=== PATIENT | male | born 1960 | race Caucasian/White ===

== ENCOUNTER → 2017-03-16 | Outpatient (CLI) | payer MEDICAID ==
[2016-04-21 16:02] VITALS: BP 169/87
[~2017-03-16] MED LIST: AMBIEN10 MG PO; BACTRIM DS 8001 TA1 PO; BENADRYL50 MG PO; CARDURA XL8 MG PO; CEPHALEXIN500 M1 PO; CIPRO500 M1 PO; CORTISPORIN EAR10 M1 OT; ENALAPRIL10 MG PO; HCTZ 25MG25 MG PO; LAMICTAL200 MG PO; LASIX20 MG PO; METFORMIN500 MG PO; NAPROXEN500 M1 PO; NORCO 325 MG-51 TA1 PO; OXYCODONE5 MG PO; TESTOSTERONE1 POW; VALSARTAN320 MG PO; VITAMIN B122500 MCG SL; VITAMIN D5000 I1 PO
== END ==
LOC: RAD 11:00
DX: M25.561 Pain in right knee (principal); M17.0 Bilateral primary osteoarthritis of knee; Z96.652 Presence of left artificial knee joint

== ENCOUNTER 2017-03-28 11:00 | Outpatient (RCR) | payer MEDICAID ==
[2016-04-21 16:02] VITALS: BP 169/87
== END 2017-04-19 13:08 | disposition home or self-care (01) ==
LOC: PT 11:00
DX: M25.562 Pain in left knee (principal); M25.561 Pain in right knee

== ENCOUNTER → 2017-05-10 | Outpatient (CLI) | payer MEDICAID ==
[2016-04-21 16:02] VITALS: BP 169/87
== END ==
LOC: LAB 11:51
DX: E11.8 Type 2 diabetes mellitus with unspecified complications (principal)

== ENCOUNTER → 2017-05-17 | Outpatient (CLI) | payer MEDICAID ==
[2016-04-21 16:02] VITALS: BP 169/87
== END ==
LOC: LAB 10:11
DX: I10 Essential (primary) hypertension (principal); Z12.5 Encounter for screening for malignant neoplasm of prostate; Z12.11 Encounter for screening for malignant neoplasm of colon; R73.02 Impaired glucose tolerance (oral); E78.2 Mixed hyperlipidemia; N52.9 Male erectile dysfunction, unspecified; R20.2 Paresthesia of skin

== ENCOUNTER → 2017-06-07 | Outpatient (CLI) | payer MEDICAID ==
[2016-04-21 16:02] VITALS: BP 169/87
== END ==
LOC: CARDREHAB 12:20
DX: E29.1 Testicular hypofunction (principal)

== ENCOUNTER → 2018-01-20 | Outpatient (CLI) | payer MEDICAID ==
[2016-04-21 16:02] VITALS: BP 169/87
[2018-01-20 10:59] LABS: EOS # 0.1 (0.04-0.40); EOS % 1.5 % (0.0-4.0); HEMATOCRIT 45.1 % (42.0-52.0); HEMOGLOBIN 14.8 g/dL (13.5-18.0); LYMPH# 1.2 (1.50-4.00); MEAN CELL VOLUME 92 fl (78-100); MEAN CORPUSCULAR HEMOGLOBIN 30 pg (27-31); MEAN CORPUSCULAR HGB CONC 33 g/dL (33-37); MEAN PLATELET VOLUME 9.8 fl (7.4-10.4); MONO # 0.5 (0.20-0.80); NEU # 4.2 (1.40-6.50); PLATELET COUNT 153 K/mm3 (130-400); RED BLOOD COUNT 4.93 M/mm3 (4.20-5.60); RED CELL DISTRIBUTION WIDTH 14.3 % (11.5-14.5)
[2018-01-20 11:12] LABS: ALBUMIN 3.9 g/dL (3.5-5.0); BUN/CREATININE RATIO 13.4 (6.0-26.0); CALCIUM 9.5 mg/dL (8.4-10.2); POTASSIUM 4.3 mmol/L (3.6-5.0); TOTAL BILIRUBIN 1.5 mg/dL (0.2-1.3); TOTAL PROTEIN 8.1 g/dL (6.3-8.2)
[2018-01-20 23:03] LABS: TESTOSTERONE 271 ng/dL (221-716)
== END ==
LOC: LAB 10:09
PROVIDERS: Internal Medicine
DX: R73.02 Impaired glucose tolerance (oral) (principal); R97.20 Elevated prostate specific antigen [PSA]; E78.2 Mixed hyperlipidemia; E29.1 Testicular hypofunction; I10 Essential (primary) hypertension

== ENCOUNTER → 2018-03-17 | Outpatient (CLI) | payer MEDICAID ==
[2016-04-21 16:02] VITALS: BP 169/87
[2018-03-17 11:47] LABS: ALBUMIN 3.7 g/dL (3.5-5.0); DIRECT BILIRUBIN 0.3 mg/dL (0.0-0.4); TOTAL PROTEIN 7.4 g/dL (6.3-8.2)
== END ==
LOC: LAB 11:14
PROVIDERS: Internal Medicine
DX: E80.6 Other disorders of bilirubin metabolism (principal)

== ENCOUNTER → 2018-04-20 | Outpatient (CLI) | payer MEDICAID ==
[2016-04-21 16:02] VITALS: BP 169/87
== END ==
LOC: RAD 10:59
DX: N20.0 Calculus of kidney (principal)

== ENCOUNTER → 2018-10-03 | Outpatient (CLI) | payer MEDICAID ==
[2016-04-21 16:02] VITALS: BP 169/87
[2018-10-03 11:31] LABS: ALBUMIN 4.1 g/dL (3.5-5.0); CALCIUM 9.9 mg/dL (8.4-10.2); EOS # 0.1 (0.04-0.40); EOS % 1.4 % (0.0-4.0); HEMATOCRIT 50.8 % (42.0-52.0); HEMOGLOBIN 17.3 g/dL (13.5-18.0); LYMPH# 1.9 (1.50-4.00); MEAN CELL VOLUME 88 fl (78-100); MEAN CORPUSCULAR HEMOGLOBIN 30 pg (27-31); MEAN CORPUSCULAR HGB CONC 34 g/dL (33-37); MEAN PLATELET VOLUME 9.9 fl (7.4-10.4); MONO # 0.7 (0.20-0.80); PLATELET COUNT 203 K/mm3 (130-400); POTASSIUM 4.1 mmol/L (3.6-5.0); RED CELL DISTRIBUTION WIDTH 14.3 % (11.5-14.5); TOTAL BILIRUBIN 1.8 mg/dL (0.2-1.3); TOTAL PROTEIN 7.7 g/dL (6.3-8.2); WHITE BLOOD COUNT 7.7 K/mm3 (4.8-10.8)
[2018-10-04 00:32] LABS: FOLLICLE STIMULATING HORMONE 14.1 mIU/mL (1.0-12.0); PROLACTIN 5.9 ng/mL (3.5-19.4); TESTOSTERONE 311 ng/dL (221-716)
== END ==
LOC: LAB 11:05
PROVIDERS: Internal Medicine
DX: R73.02 Impaired glucose tolerance (oral) (principal); E29.1 Testicular hypofunction

== ENCOUNTER → 2018-11-29 | Outpatient (CLI) | payer MEDICAID ==
[2016-04-21 16:02] VITALS: BP 169/87
== END ==
LOC: RAD 08:10
DX: M25.761 Osteophyte, right knee (principal); M23.41 Loose body in knee, right knee; M25.561 Pain in right knee; D48.0 Neoplasm of uncertain behavior of bone and articular cartilage

== ENCOUNTER → 2019-03-27 | Outpatient (CLI) | payer MEDICAID ==
[2016-04-21 16:02] VITALS: BP 169/87
[2019-03-27 11:04] LABS: POTASSIUM 4.7 mmol/L (3.5-5.1)
[2019-03-27 11:05] LABS: ALBUMIN 3.7 g/dL (3.5-5.0)
[2019-03-27 11:08] LABS: CALCIUM 9.7 mg/dL (8.3-10.5)
[2019-03-27 11:10] LABS: TOTAL PROTEIN 7.2 g/dL (6.4-8.3)
[2019-03-27 11:40] LABS: EOS # 0.2 (0.04-0.40); EOS % 2.1 % (0.0-4.0); HEMATOCRIT 50.2 % (42.0-52.0); HEMOGLOBIN 16.7 g/dL (13.5-18.0); LYMPH# 2.2 (1.50-4.00); MEAN CELL VOLUME 90 fl (78-100); MEAN CORPUSCULAR HEMOGLOBIN 30 pg (27-31); MEAN CORPUSCULAR HGB CONC 33 g/dL (33-37); MEAN PLATELET VOLUME 10.5 fl (7.4-10.4); MONO # 0.7 (0.20-0.80); NEU # 5.4 (1.40-6.50); PLATELET COUNT 201 K/mm3 (130-400); RED BLOOD COUNT 5.61 M/mm3 (4.20-5.60); RED CELL DISTRIBUTION WIDTH 14.2 % (11.5-14.5); WHITE BLOOD COUNT 8.5 K/mm3 (4.8-10.8)
== END ==
LOC: LAB 10:39
PROVIDERS: Internal Medicine
DX: I10 Essential (primary) hypertension (principal); E78.2 Mixed hyperlipidemia; E29.1 Testicular hypofunction; R73.02 Impaired glucose tolerance (oral); R97.20 Elevated prostate specific antigen [PSA]

== ENCOUNTER → 2019-07-02 | Outpatient (CLI) | payer MEDICAID ==
[2016-04-21 16:02] VITALS: BP 169/87
== END ==
LOC: RAD 11:19
DX: M25.562 Pain in left knee (principal)

== ENCOUNTER → 2019-11-14 | Outpatient (CLI) | payer MEDICAID ==
[2016-04-21 16:02] VITALS: BP 169/87
== END ==
LOC: RAD 08:39
DX: M17.11 Unilateral primary osteoarthritis, right knee (principal)

== ENCOUNTER → 2020-02-05 | Outpatient (CLI) | payer MEDICAID ==
[2016-04-21 16:02] VITALS: BP 169/87
[2020-02-05 11:40] LABS: EOS # 0.1 (0.04-0.40); EOS % 1.4 % (0.0-4.0); HEMATOCRIT 50.2 % (42.0-52.0); HEMOGLOBIN 16.4 g/dL (13.5-18.0); LYMPH# 2.2 (1.50-4.00); MEAN CELL VOLUME 93 fl (78-100); MEAN CORPUSCULAR HEMOGLOBIN 30 pg (27-31); MEAN CORPUSCULAR HGB CONC 33 g/dL (33-37); MEAN PLATELET VOLUME 9.8 fl (7.4-10.4); MONO # 1.1 (0.20-0.80); NEU # 6.9 (1.40-6.50); PLATELET COUNT 186 K/mm3 (130-400); RED BLOOD COUNT 5.39 M/mm3 (4.20-5.60); RED CELL DISTRIBUTION WIDTH 13.9 % (11.5-14.5); WHITE BLOOD COUNT 10.3 K/mm3 (4.8-10.8)
[2020-02-05 11:44] LABS: ALBUMIN 3.7 g/dL (3.5-5.0); POTASSIUM 4.4 mmol/L (3.5-5.1)
[2020-02-05 11:45] LABS: CALCIUM 9.8 mg/dL (8.3-10.5)
[2020-02-05 11:46] LABS: TOTAL PROTEIN 7.1 g/dL (6.4-8.3)
[2020-02-05 11:48] LABS: TOTAL BILIRUBIN 0.9 mg/dL (0.2-1.2)
[2020-02-05 13:25] LABS: ERYTHROCYTE SEDIMENTATION RATE 20 mm/hr (0-20)
== END ==
LOC: LAB 11:14
PROVIDERS: Internal Medicine
DX: I10 Essential (primary) hypertension (principal); L03.115 Cellulitis of right lower limb; R73.02 Impaired glucose tolerance (oral)

== ENCOUNTER → 2020-02-14 | Outpatient (CLI) | payer MEDICAID ==
[2016-04-21 16:02] VITALS: BP 169/87
[2020-02-14 11:30] LABS: EOS # 0.2 (0.04-0.40); EOS % 2.1 % (0.0-4.0); HEMATOCRIT 49.9 % (42.0-52.0); HEMOGLOBIN 16.3 g/dL (13.5-18.0); LYMPH# 1.8 (1.50-4.00); MEAN CELL VOLUME 93 fl (78-100); MEAN CORPUSCULAR HEMOGLOBIN 30 pg (27-31); MEAN CORPUSCULAR HGB CONC 33 g/dL (33-37); MEAN PLATELET VOLUME 9.7 fl (7.4-10.4); MONO # 0.7 (0.20-0.80); NEU # 5.3 (1.40-6.50); PLATELET COUNT 175 K/mm3 (130-400); RED BLOOD COUNT 5.39 M/mm3 (4.20-5.60); RED CELL DISTRIBUTION WIDTH 13.9 % (11.5-14.5)
[2020-02-14 11:42] LABS: ALBUMIN 3.7 g/dL (3.5-5.0); POTASSIUM 4.9 mmol/L (3.5-5.1)
[2020-02-14 11:43] LABS: CALCIUM 9.9 mg/dL (8.3-10.5)
[2020-02-14 11:45] LABS: TOTAL PROTEIN 7.1 g/dL (6.4-8.3)
[2020-02-14 11:46] LABS: TOTAL BILIRUBIN 0.9 mg/dL (0.2-1.2)
[2020-02-15 04:34] LABS: LUTENIZING HORMONE 5.1 mIU/mL (()); PROLACTIN AMS 5.7 ng/mL (3.7-23.1)
== END ==
LOC: LAB 10:58
PROVIDERS: Internal Medicine
DX: E78.2 Mixed hyperlipidemia (principal); R73.02 Impaired glucose tolerance (oral)

== ENCOUNTER → 2020-03-10 | Outpatient (CLI) | payer MEDICAID ==
[2016-04-21 16:02] VITALS: BP 169/87
[~2020-03-10] MED LIST changes: +COUMADIN 5MG5 MG/TAB PO; +K-TAB20 MEQ; +RESTORIL15 MG PO; +TORSEMIDE10 M1 PO
[2020-03-10 10:11] LABS: POTASSIUM 4.4 mmol/L (3.5-5.1)
[2020-03-10 10:12] LABS: CALCIUM 9.5 mg/dL (8.3-10.5)
[2020-03-10 10:19] LABS: MAGNESIUM 1.79 mg/dL (1.60-2.60)
[2020-03-10 13:22] LABS: PROTHROMBIN TIME 76.6 SECONDS (9.0-12.0)
== END ==
LOC: LAB 09:35
PROVIDERS: Internal Medicine
DX: I82.411 Acute embolism and thrombosis of right femoral vein (principal); I10 Essential (primary) hypertension

== ENCOUNTER → 2020-03-11 | Outpatient (CLI) | payer MEDICAID ==
[~2020-03-11] VITALS: Ht 190.5 cm; Wt 211.4 kg
[2020-03-11 15:17] VITALS: BP 141/79
== END ==
LOC: AMSURD 14:15
DX: I82.411 Acute embolism and thrombosis of right femoral vein (principal)
CPT/HCPCS: J3430

== ENCOUNTER → 2020-03-11 | Outpatient (CLI) | payer MEDICAID ==
[2016-04-21 16:02] VITALS: BP 169/87
[2020-03-11 12:09] LABS: PROTHROMBIN TIME 94.9 SECONDS (9.0-12.0)
== END ==
LOC: LAB 09:39
PROVIDERS: Internal Medicine
DX: I82.411 Acute embolism and thrombosis of right femoral vein (principal); I10 Essential (primary) hypertension

== ENCOUNTER → 2020-03-12 | Outpatient (CLI) | payer MEDICAID ==
[2020-03-11 15:17] VITALS: BP 141/79
[2020-03-12 11:29] LABS: PROTHROMBIN TIME 70.6 SECONDS (9.0-12.0)
== END ==
LOC: LAB 09:37
PROVIDERS: Internal Medicine
DX: I82.411 Acute embolism and thrombosis of right femoral vein (principal); I10 Essential (primary) hypertension

== ENCOUNTER → 2020-03-13 | Outpatient (CLI) | payer MEDICAID ==
[2020-03-11 15:17] VITALS: BP 141/79
[2020-03-13 09:21] LABS: ALBUMIN 3.8 g/dL (3.5-5.0); POTASSIUM 4.9 mmol/L (3.5-5.1)
[2020-03-13 09:23] LABS: TOTAL PROTEIN 7.7 g/dL (6.4-8.3)
[2020-03-13 09:30] LABS: MAGNESIUM 1.96 mg/dL (1.60-2.60)
[2020-03-13 09:46] LABS: PROTHROMBIN TIME 38.8 SECONDS (9.0-12.0)
== END ==
LOC: LAB 08:58
PROVIDERS: Internal Medicine
DX: I82.411 Acute embolism and thrombosis of right femoral vein (principal); I10 Essential (primary) hypertension; R73.02 Impaired glucose tolerance (oral)

== ENCOUNTER → 2020-06-26 | Outpatient (CLI) | payer MEDICAID ==
[2020-03-11 15:17] VITALS: BP 141/79
[2020-06-26 11:24] LABS: EOS # 0.1 (0.04-0.40); EOS % 1.2 % (0.0-4.0); HEMATOCRIT 47.8 % (42.0-52.0); HEMOGLOBIN 15.6 g/dL (13.5-18.0); LYMPH# 1.5 (1.50-4.00); MEAN CELL VOLUME 93 fl (78-100); MEAN CORPUSCULAR HEMOGLOBIN 30 pg (27-31); MEAN CORPUSCULAR HGB CONC 33 g/dL (33-37); MEAN PLATELET VOLUME 9.6 fl (7.4-10.4); MONO # 0.7 (0.20-0.80); NEU # 5.8 (1.40-6.50); PLATELET COUNT 182 K/mm3 (130-400); RED BLOOD COUNT 5.16 M/mm3 (4.20-5.60); RED CELL DISTRIBUTION WIDTH 14.5 % (11.5-14.5); WHITE BLOOD COUNT 8.1 K/mm3 (4.8-10.8)
[2020-06-26 11:39] LABS: ALBUMIN 3.7 g/dL (3.4-4.8); POTASSIUM 4.5 mmol/L (3.5-5.1)
[2020-06-26 11:41] LABS: TOTAL PROTEIN 6.8 g/dL (6.2-8.1)
[2020-06-26 11:43] LABS: TOTAL BILIRUBIN 1.8 mg/dL (0.2-1.2)
== END ==
LOC: LAB 11:11
PROVIDERS: Internal Medicine
DX: K90.9 Intestinal malabsorption, unspecified (principal); R73.02 Impaired glucose tolerance (oral)

== ENCOUNTER → 2020-07-24 | Outpatient (CLI) | payer MEDICAID ==
[2020-03-11 15:17] VITALS: BP 141/79
== END ==
LOC: RAD 10:12
DX: M79.89 Other specified soft tissue disorders (principal)

== ENCOUNTER → 2020-08-19 | Outpatient (CLI) | payer MEDICAID ==
[2020-03-11 15:17] VITALS: BP 141/79
== END ==
LOC: LAB 09:20
DX: K90.9 Intestinal malabsorption, unspecified (principal)

== ENCOUNTER → 2020-10-16 | Outpatient (CLI) | payer MEDICAID ==
[2020-03-11 15:17] VITALS: BP 141/79
== END ==
LOC: RAD 09:52
DX: M79.604 Pain in right leg (principal); R60.0 Localized edema

== ENCOUNTER → 2020-11-20 | Outpatient (CLI) | payer MEDICAID ==
[2020-03-11 15:17] VITALS: BP 141/79
[2020-11-20 10:56] LABS: EOS # 0.1 (0.04-0.40); EOS % 0.7 % (0.0-4.0); HEMATOCRIT 41.6 % (42.0-52.0); HEMOGLOBIN 13.3 g/dL (13.5-18.0); LYMPH# 1.7 (1.50-4.00); MEAN CELL VOLUME 93 fl (78-100); MEAN CORPUSCULAR HEMOGLOBIN 30 pg (27-31); MEAN CORPUSCULAR HGB CONC 32 g/dL (33-37); MEAN PLATELET VOLUME 9.3 fl (7.4-10.4); PLATELET COUNT 299 K/mm3 (130-400); RED BLOOD COUNT 4.48 M/mm3 (4.20-5.60); RED CELL DISTRIBUTION WIDTH 14.4 % (11.5-14.5); WHITE BLOOD COUNT 13.6 K/mm3 (4.8-10.8)
[2020-11-20 11:31] LABS: ALBUMIN 3.1 g/dL (3.4-4.8); POTASSIUM 4.7 mmol/L (3.5-5.1)
[2020-11-20 11:32] LABS: CALCIUM 9.4 mg/dL (8.3-10.5)
[2020-11-20 11:34] LABS: TOTAL PROTEIN 7.5 g/dL (6.2-8.1)
[2020-11-20 11:35] LABS: TOTAL BILIRUBIN 0.8 mg/dL (0.2-1.2)
[2020-11-20 11:40] LABS: MAGNESIUM 1.88 mg/dL (1.60-2.60)
[2020-11-20 12:13] LABS: NEU # 10.7 (1.40-6.50)
== END ==
LOC: LAB 09:40
PROVIDERS: Internal Medicine
DX: I10 Essential (primary) hypertension (principal); K90.9 Intestinal malabsorption, unspecified

== ENCOUNTER → 2021-08-13 | Outpatient (CLI) | payer MEDICAID ==
[2021-08-13 10:38] LABS: BASO # 0.03 K/mm3 (0.02-0.10); EOS # 0.15 K/mm3 (0.04-0.40); EOS % 1.5 % (0.0-4.0); HEMATOCRIT 34.5 % (42.0-52.0); HEMOGLOBIN 11.1 g/dL (13.5-18.0); LYMPH# 1.93 K/mm3 (1.50-4.00); MEAN CELL VOLUME 94 fl (78-100); MEAN CORPUSCULAR HEMOGLOBIN 30 pg (27-31); MEAN CORPUSCULAR HGB CONC 32 g/dL (33-37); MEAN PLATELET VOLUME 9.1 fl (7.4-10.4); MONO # 0.84 K/mm3 (0.20-0.80); NEU # 7.11 K/mm3 (1.40-6.50); PLATELET COUNT 162 K/mm3 (130-400); RED BLOOD COUNT 3.66 M/mm3 (4.20-5.60); RED CELL DISTRIBUTION WIDTH 14.1 % (11.5-14.5); WHITE BLOOD COUNT 10.2 K/mm3 (4.8-10.8)
[2021-08-13 10:49] LABS: ALBUMIN 3.7 g/dL (3.4-4.8); POTASSIUM 5.1 mmol/L (3.5-5.1)
[2021-08-13 10:50] LABS: CALCIUM 9.5 mg/dL (8.3-10.5)
[2021-08-13 10:51] LABS: TOTAL PROTEIN 7.3 g/dL (6.2-8.1)
[2021-08-13 10:53] LABS: TOTAL BILIRUBIN 0.7 mg/dL (0.2-1.2)
[2021-08-13 10:58] LABS: MAGNESIUM 1.82 mg/dL (1.60-2.60)
[2021-08-13 11:00] LABS: URINE APPEARANCE HAZY; URINE BILIRUBIN NEGATIVE (NEGATIVE); URINE BLOOD 50 ery/uL (NEGATIVE); URINE COLOR YELLOW; URINE GLUCOSE 50 mg/dL mg/dL (NEGATIVE); URINE KETONE NEGATIVE (NEGATIVE); URINE LEUKOCYTE ESTERASE 2+ (NEGATIVE); URINE MUCUS PRESENT (NOT PRESENT); URINE NITRATE NEGATIVE (NEGATIVE); URINE PROTEIN(semi-quant) 1+ mg/dL (NEGATIVE); URINE UROBILINOGEN NORMAL (NORMAL); URINE WBC >50 /hpf (0-3)
[2021-08-13 23:39] LABS: TESTOSTERONE 220 ng/dL (221-716)
== END ==
LOC: LAB 10:11 → RAD 10:11
PROVIDERS: Internal Medicine
DX: R73.03 Prediabetes (principal); E78.2 Mixed hyperlipidemia; I10 Essential (primary) hypertension; K90.9 Intestinal malabsorption, unspecified; E23.0 Hypopituitarism; R22.1 Localized swelling, mass and lump, neck

== ENCOUNTER → 2022-06-03 | Outpatient (CLI) | payer MEDICAID ==
[2022-06-03 11:37] LABS: BASO # 0.02 K/mm3 (0.02-0.10); EOS # 0.14 K/mm3 (0.04-0.40); EOS % 1.6 % (0.0-4.0); HEMATOCRIT 43.3 % (42.0-52.0); HEMOGLOBIN 13.9 g/dL (13.5-18.0); LYMPH# 1.58 K/mm3 (1.50-4.00); MEAN CELL VOLUME 91 fl (78-100); MEAN CORPUSCULAR HEMOGLOBIN 29 pg (27-31); MEAN CORPUSCULAR HGB CONC 32 g/dL (33-37); MEAN PLATELET VOLUME 9.2 fl (7.4-10.4); MONO # 0.59 K/mm3 (0.20-0.80); NEU # 6.38 K/mm3 (1.40-6.50); PLATELET COUNT 173 K/mm3 (130-400); RED BLOOD COUNT 4.74 M/mm3 (4.20-5.60); RED CELL DISTRIBUTION WIDTH 14.2 % (11.5-14.5); WHITE BLOOD COUNT 8.7 K/mm3 (4.8-10.8)
[2022-06-03 11:44] LABS: ALBUMIN 3.6 g/dL (3.4-4.8); POTASSIUM 4.4 mmol/L (3.5-5.1)
[2022-06-03 11:45] LABS: CALCIUM 9.5 mg/dL (8.3-10.5)
[2022-06-03 11:46] LABS: TOTAL PROTEIN 7.2 g/dL (6.2-8.1)
[2022-06-03 11:48] LABS: TOTAL BILIRUBIN 1.5 mg/dL (0.2-1.2)
[2022-06-03 11:53] LABS: MAGNESIUM 1.78 mg/dL (1.60-2.60)
[2022-06-03 12:54] LABS: URINE APPEARANCE CLOUDY; URINE COLOR YELLOW; URINE PROTEIN(semi-quant) NEGATIVE (NEGATIVE)
[2022-06-03 12:55] LABS: URINE BILIRUBIN NEGATIVE (NEGATIVE); URINE BLOOD TRACE (NEGATIVE); URINE GLUCOSE NEGATIVE (NEGATIVE); URINE KETONE NEGATIVE (NEGATIVE); URINE LEUKOCYTE ESTERASE 2+ (NEGATIVE); URINE NITRATE NEGATIVE (NEGATIVE); URINE UROBILINOGEN NORMAL (NORMAL); URINE WBC >50 /hpf (0-3)
[2022-06-03 23:11] LABS: TESTOSTERONE 207 ng/dL (221-716)
== END ==
LOC: LAB 11:19
PROVIDERS: Internal Medicine
DX: Z12.5 Encounter for screening for malignant neoplasm of prostate (principal); N40.0 Benign prostatic hyperplasia without lower urinary tract symptoms; N18.30 Chronic kidney disease, stage 3 unspecified; G47.33 Obstructive sleep apnea (adult) (pediatric); I10 Essential (primary) hypertension; K90.9 Intestinal malabsorption, unspecified; E23.0 Hypopituitarism; E78.2 Mixed hyperlipidemia; H10.13 Acute atopic conjunctivitis, bilateral; E55.9 Vitamin D deficiency, unspecified; R73.03 Prediabetes

== ENCOUNTER → 2022-09-02 | Outpatient (CLI) | payer MEDICAID ==
[2022-09-02 12:15] LABS: ALBUMIN 3.5 g/dL (3.4-4.8); POTASSIUM 4.7 mmol/L (3.5-5.1)
[2022-09-02 12:17] LABS: CALCIUM 9.4 mg/dL (8.3-10.5)
[2022-09-02 12:18] LABS: TOTAL PROTEIN 7.1 g/dL (6.2-8.1)
[2022-09-02 12:20] LABS: TOTAL BILIRUBIN 0.9 mg/dL (0.2-1.2)
[2022-09-02 12:25] LABS: MAGNESIUM 1.76 mg/dL (1.60-2.60)
== END ==
LOC: LAB 11:37
PROVIDERS: Internal Medicine
DX: U07.1 COVID-19 (principal); N18.30 Chronic kidney disease, stage 3 unspecified; G47.33 Obstructive sleep apnea (adult) (pediatric); I10 Essential (primary) hypertension; E78.2 Mixed hyperlipidemia; N20.0 Calculus of kidney; R97.8 Other abnormal tumor markers; R73.03 Prediabetes; R09.02 Hypoxemia